=== PATIENT | male | born 1945 | race Caucasian/White ===

== ENCOUNTER → 2021-01-06 | Outpatient (CLI) | payer MEDICARE, OTHER | END | disposition home or self-care (01) | LOC: LAB SHORT 07:48 | DX: D04.39 Carcinoma in situ of skin of other parts of face (principal) | CPT/HCPCS: 88305 ==

== ENCOUNTER → 2021-03-25 | Outpatient (CLI) | payer MEDICARE, OTHER | LOC: LAB SHORT 14:58 → LAB 14:58 | DX: D48.5 Neoplasm of uncertain behavior of skin (principal); C44.319 Basal cell carcinoma of skin of other parts of face | CPT/HCPCS: 88305 ==

== ENCOUNTER → 2021-05-28 | Outpatient (CLI) | payer MEDICARE, OTHER | END | disposition home or self-care (01) | LOC: LAB 14:25 → LAB SHORT 14:25 | DX: C44.319 Basal cell carcinoma of skin of other parts of face (principal) | CPT/HCPCS: 88305 ==

== ENCOUNTER → 2021-06-11 | Outpatient (CLI) | payer MEDICARE, OTHER | END | disposition home or self-care (01) | LOC: LAB SHORT 08:30 → LAB 08:30 | DX: C44.41 Basal cell carcinoma of skin of scalp and neck (principal) | CPT/HCPCS: 88305 ==

== ENCOUNTER → 2021-07-07 | Outpatient (CLI) | payer MEDICARE, OTHER | END | disposition home or self-care (01) | LOC: LAB SHORT 16:38 | DX: C44.310 Basal cell carcinoma of skin of unspecified parts of face (principal) | CPT/HCPCS: 88305 ==

== ENCOUNTER → 2022-07-09 | Outpatient (CLI) | payer MEDICARE, OTHER | END | disposition home or self-care (01) | LOC: PLD 11:38 → LAB 11:38 → LAB SHORT 11:38 | DX: C44.212 Basal cell carcinoma of skin of right ear and external auricular canal (principal) | CPT/HCPCS: 88305 ==

== ENCOUNTER 2022-12-16 01:38 | Emergency (ER) | payer MEDICARE, OTHER ==
[~2022-12-16] VITALS: Ht 182.9 cm; Wt 113.4 kg
[2022-12-16 02:19] LABS: BASOPHILS ABSOLUTE AUTO 0.03 K/mm3 (0.00-0.23); BASOPHILS PERCENT AUTO 0 % (0-2); EOSINOPHILS ABSOLUTE AUTO 0.01 K/mm3 (0.00-0.68); EOSINOPHILS PERCENT AUTO 0 % (0-6); IMMATURE GRAN ABSOLUTE AUTO 0.07 K/mm3 (0.00-0.10); IMMATURE GRAN PERCENT AUTO 1 % (0-1); LYMPHOCYTES ABSOLUTE AUTO 0.72 K/mm3 (0.84-5.20); LYMPHOCYTES PERCENT AUTO 9 % (21-46); MONOCYTES ABSOLUTE AUTO 0.89 K/mm3 (0.16-1.47); MONOCYTES PERCENT AUTO 11 % (4-13); Mean Corpuscular HGB 29.5 pg (26.0-34.0); Mean Corpuscular HGB Conc 35.7 g/dL (31.5-36.5); Mean Corpuscular Volume 83 fL (80-100); NEUTROPHILS ABSOLUTE AUTO 6.56 K/mm3 (1.96-9.15); NEUTROPHILS PERCENT AUTO 79 % (41-73); RDW Coefficient Variation 12.5 % (11.7-14.2); RDW Standard Deviation 38.2 fL (35.1-46.3); Red Blood Cell Count 5.08 M/mm3 (4.30-5.90); White Blood Cell Count 8.28 K/mm3 (4.00-11.30)
[2022-12-16] MEDS ORDERED: POTCHL20ER PO (02:27)
[2022-12-16] MEDS ORDERED: LEVETIRACETAM50014 PO (02:27)
[2022-12-16] MEDS ORDERED: PLAVIX75 MG PO (02:29)
[2022-12-16] MEDS ORDERED: ZOLOFT10013 PO (02:29)
[2022-12-16] MEDS ORDERED: LOSA50 PO (02:29)
[2022-12-16 02:30] LABS: Albumin, Blood 3.2 g/dL (3.4-5.0); Albumin/Globulin Ratio 0.9 (0.8-1.8); Bilirubin, Total 0.7 mg/dL (0.1-1.0); Bun/Creatinine Ratio 24.8 (12.0-20.0); Calcium, Blood 8.5 mg/dL (8.5-10.1); Creatinine, Blood 1.01 mg/dL (0.60-1.20); Globulin, Blood 3.7 g/dL (2.2-4.0); Potassium, Blood 3.6 mmol/L (3.5-5.5); Total Protein, Blood 6.9 g/dL (6.4-8.2)
[2022-12-16] MEDS ORDERED: HYDCHL25 PO (02:30)
[2022-12-16] MEDS ORDERED: Simvastatin80 MG PO (02:30)
[2022-12-16] MEDS ORDERED: LATA.005SO BOTHEYES (02:32)
[2022-12-16 02:38] LABS: Mean Platelet Volume 9.6 fL (9.1-12.4)
[2022-12-16 02:48] LABS: Platelet Count 158 K/mm3 (150-400)
[2022-12-16 04:51] LABS: Source, Urine Voided
[2022-12-16 04:53] LABS: Bilirubin, Urine Neg (Neg); Blood, Urine 1+ (Neg); Glucose Qualitative, Urine Neg (Neg); Ketones, Urine Neg (Neg); Leukocyte Esterase, Urine Neg (Neg); Nitrite, Urine Neg (Neg); Protein, Urine 1+ (Neg); Urobilinogen, Urine 1+ (Normal)
[2022-12-16 05:01] LABS: Appearance, Urine Clear (Clear); Color, Urine Yellow (P-Yellow)
[2022-12-16 05:06] LABS: Bacteria Few /hpf; Red Blood Cells, Urine 0-2 /hpf (0-2); Squamous Epithelial Cells Few /hpf (Few); White Blood Cells, Urine 0-2 /hpf (0-5)
[2022-12-16] MEDS ORDERED: Norco 5-325 Ta1 EACH PO ×2 (05:30→05:49)
== END 2022-12-16 06:00 | disposition home or self-care (01) ==
LOC: ER 01:38
PROVIDERS: Emergency Medicine
DX: R10.9 Unspecified abdominal pain (principal); N28.89 Other specified disorders of kidney and ureter; Z91.030 Bee allergy status; Z86.73 Personal history of transient ischemic attack (TIA), and cerebral infarction without residual deficits
CPT/HCPCS: 74177; 80053; 81001; 83690; 85025; 93005; 93010; J1885; J2405; Q9967

== ENCOUNTER 2024-01-31 07:46 | Emergency (ER) | payer MEDICARE, OTHER ==
[~2024-01-31] VITALS: Ht 177.8 cm; Wt 90.7 kg
[~2024-01-31 07:46] MED LIST: HYDCHL25 PO; LATA.005SO BOTHEYES; LEVETIRACETAM50014 PO; LOSA50 PO; Norco 5-325 Ta1 EACH PO; PLAVIX75 MG PO; POTCHL20ER PO; Simvastatin80 MG PO; ZOLOFT10013 PO
[2024-01-31 10:14] LABS: BASOPHILS ABSOLUTE AUTO 0.03 K/mm3 (0.00-0.23); BASOPHILS PERCENT AUTO 0 % (0-2); EOSINOPHILS ABSOLUTE AUTO 0.07 K/mm3 (0.00-0.68); EOSINOPHILS PERCENT AUTO 1 % (0-6); Hematocrit 41.2 % (37.0-53.0); Hemoglobin 14.2 g/dL (13.5-17.5); IMMATURE GRAN ABSOLUTE AUTO 0.05 K/mm3 (0.00-0.10); IMMATURE GRAN PERCENT AUTO 1 % (0-1); LYMPHOCYTES ABSOLUTE AUTO 1.17 K/mm3 (0.84-5.20); LYMPHOCYTES PERCENT AUTO 12 % (21-46); MONOCYTES ABSOLUTE AUTO 0.67 K/mm3 (0.16-1.47); MONOCYTES PERCENT AUTO 7 % (4-13); Mean Corpuscular HGB 30.1 pg (26.0-34.0); Mean Corpuscular HGB Conc 34.5 g/dL (31.5-36.5); Mean Corpuscular Volume 87 fL (80-100); Mean Platelet Volume 8.8 fL (9.1-12.4); NEUTROPHILS ABSOLUTE AUTO 7.72 K/mm3 (1.96-9.15); NEUTROPHILS PERCENT AUTO 80 % (41-73); Platelet Count 187 K/mm3 (150-400); RDW Coefficient Variation 13.1 % (11.7-14.2); RDW Standard Deviation 41.3 fL (35.1-46.3); Red Blood Cell Count 4.72 M/mm3 (4.30-5.90); White Blood Cell Count 9.71 K/mm3 (4.00-11.30)
[2024-01-31] MEDS ORDERED: Ketorolac Tromethamine 30mg Vial IV ONE (10:30)
[2024-01-31 10:45] LABS: Albumin/Globulin Ratio 0.9 (0.8-1.8); Bilirubin, Total 0.7 mg/dL (0.1-1.0); Bun/Creatinine Ratio 13.6 (12.0-20.0); Calcium, Blood 9.2 mg/dL (8.5-10.1); Creatinine, Blood 0.96 mg/dL (0.60-1.20); Globulin, Blood 3.3 g/dL (2.2-4.0); Potassium, Blood 3.9 mmol/L (3.5-5.5); Total Protein, Blood 6.3 g/dL (6.4-8.2)
[2024-01-31 12:24] LABS: Source, Urine Clean Catch
[2024-01-31 12:34] LABS: Bilirubin, Urine Neg (Neg); Blood, Urine 2+ (Neg); Glucose Qualitative, Urine Neg (Neg); Ketones, Urine Neg (Neg); Leukocyte Esterase, Urine Neg (Neg); Nitrite, Urine Neg (Neg); Protein, Urine Neg (Neg); Urobilinogen, Urine NORM (Normal)
[2024-01-31 12:45] LABS: Appearance, Urine Clear (Clear); Color, Urine Yellow (P-Yellow)
[2024-01-31 12:46] LABS: Bacteria Not Seen /hpf; Squamous Epithelial Cells Rare /hpf (Few); White Blood Cells, Urine Not Seen /hpf (0-5)
[2024-01-31 13:00] VITALS: BP 144/87
== END 2024-01-31 13:30 | disposition home or self-care (01) ==
LOC: ER 07:46
PROVIDERS: Physician Assistant
DX: R10.31 Right lower quadrant pain (principal); N50.82 Scrotal pain; I10 Essential (primary) hypertension; E78.5 Hyperlipidemia, unspecified; Z86.73 Personal history of transient ischemic attack (TIA), and cerebral infarction without residual deficits; Z91.030 Bee allergy status; Z88.8 Allergy status to other drugs, medicaments and biological substances; Z79.02 Long term (current) use of antithrombotics/antiplatelets; Z79.899 Other long term (current) drug therapy
CPT/HCPCS: 51701; 76870; 80053; 81001; 85025; 93971; 96374-59; 99284-25; J1885

== ENCOUNTER → 2024-07-15 | Outpatient (CLI) | payer MEDICARE, OTHER ==
[2024-07-15 16:32] LABS: BASOPHILS ABSOLUTE AUTO 0.08 K/mm3 (0.00-0.23); BASOPHILS PERCENT AUTO 1 % (0-2); EOSINOPHILS ABSOLUTE AUTO 0.24 K/mm3 (0.00-0.68); EOSINOPHILS PERCENT AUTO 2 % (0-6); Hematocrit 39.9 % (37.0-53.0); Hemoglobin 13.8 g/dL (13.5-17.5); IMMATURE GRAN ABSOLUTE AUTO 0.16 K/mm3 (0.00-0.10); IMMATURE GRAN PERCENT AUTO 1 % (0-1); LYMPHOCYTES ABSOLUTE AUTO 1.68 K/mm3 (0.84-5.20); LYMPHOCYTES PERCENT AUTO 11 % (21-46); MONOCYTES ABSOLUTE AUTO 0.86 K/mm3 (0.16-1.47); MONOCYTES PERCENT AUTO 6 % (4-13); Mean Corpuscular HGB 29.2 pg (26.0-34.0); Mean Corpuscular HGB Conc 34.6 g/dL (31.5-36.5); Mean Corpuscular Volume 84 fL (80-100); Mean Platelet Volume 8.8 fL (9.1-12.4); NEUTROPHILS ABSOLUTE AUTO 11.97 K/mm3 (1.96-9.15); NEUTROPHILS PERCENT AUTO 80 % (41-73); Platelet Count 318 K/mm3 (150-400); Red Blood Cell Count 4.73 M/mm3 (4.30-5.90); White Blood Cell Count 14.99 K/mm3 (4.00-11.30)
[2024-07-15 16:51] LABS: Albumin, Blood 2.7 g/dL (3.4-5.0); Albumin/Globulin Ratio 0.6 (0.8-1.8); Bilirubin, Total 0.6 mg/dL (0.1-1.0); Bun/Creatinine Ratio 31.9 (12.0-20.0); Calcium, Blood 9.2 mg/dL (8.5-10.1); Creatinine, Blood 1.13 mg/dL (0.60-1.20); Globulin, Blood 4.5 g/dL (2.2-4.0); Potassium, Blood 4.3 mmol/L (3.5-5.5); Total Protein, Blood 7.2 g/dL (6.4-8.2)
== END ==
LOC: LAB SHORT 16:26 → LAB 16:26
PROVIDERS: Nurse Practitioner Family
DX: G45.9 Transient cerebral ischemic attack, unspecified (principal); N20.0 Calculus of kidney
CPT/HCPCS: 80053; 85025

== ENCOUNTER 2025-05-22 12:57 | Observation (INO) | payer OTHER, MEDICARE ==
[~2025-05-22] VITALS: Ht 177.8 cm; Wt 105.8 kg
[~2025-05-22 12:57] MED LIST changes: -LOSA50 PO; +LOSARTAN POTAS100 MG PO; +Simvastatin40 MG PO; -Simvastatin80 MG PO
[2025-05-22] MEDS ORDERED: HYDROmorphone HCl/Pf 1MG SYR IV ONE ×2 (13:25→14:45)
[2025-05-22] MEDS ORDERED: Ondansetron HCl 2 MG / ML 2ML Vial IV ONE (13:25)
[2025-05-22] MEDS ORDERED: IBUP400 PO (14:04)
[2025-05-22] MEDS ORDERED: TRAM50 PO (14:17)
[2025-05-22 15:28] LABS: BASOPHILS ABSOLUTE AUTO 0.04 K/mm3 (0.00-0.23); BASOPHILS PERCENT AUTO 0 % (0-2); EOSINOPHILS ABSOLUTE AUTO 0.03 K/mm3 (0.00-0.68); EOSINOPHILS PERCENT AUTO 0 % (0-6); Hematocrit 39.9 % (37.0-53.0); Hemoglobin 13.2 g/dL (13.5-17.5); IMMATURE GRAN ABSOLUTE AUTO 0.08 K/mm3 (0.00-0.10); IMMATURE GRAN PERCENT AUTO 1 % (0-1); LYMPHOCYTES ABSOLUTE AUTO 0.80 K/mm3 (0.84-5.20); LYMPHOCYTES PERCENT AUTO 6 % (21-46); MONOCYTES ABSOLUTE AUTO 0.63 K/mm3 (0.16-1.47); MONOCYTES PERCENT AUTO 5 % (4-13); Mean Corpuscular HGB Conc 33.1 g/dL (31.5-36.5); Mean Corpuscular Volume 89 fL (80-100); NEUTROPHILS ABSOLUTE AUTO 12.40 K/mm3 (1.96-9.15); NEUTROPHILS PERCENT AUTO 89 % (41-73); NRBC ABSOLUTE 0.00 K/mm3 (0.00-0.02); NRBC Auto 0.0 /100 WBC (0.0-0.2); Platelet Count 169 K/mm3 (150-400); RDW Coefficient Variation 13.2 % (11.7-14.2); RDW Standard Deviation 43.2 fL (35.1-46.3)
--- NOTE | 2025-05-22 16:00 | NUR ---
MET WITH PATIENT AND FAMILY IN ER TO DISCUSS GOALS. PATIENT IS ON HOSPICE WITH [facility], BUT FELL AND HAS AN ARM FX AND HIP FX. PATIENT IS GOING TO BE ADMITED FOR PAIN CONTROL AND PENDING HOSPITAL BED FROM HOSPICE TO BE DELIVERED.
[2025-05-22 16:03] LABS: Alanine Aminotransfer (ALT/SGP 22.0 U/L (12-78); Albumin, Blood 3.2 g/dL (3.4-5.0); Albumin/Globulin Ratio 0.9 (0.8-1.8); Anion Gap 7.0 mmol/L (3-11); Aspartate Aminotrans (AST/SGOT 21.0 U/L (12-37); Bilirubin, Total 0.5 mg/dL (0.1-1.0); Blood Urea Nitrogen 22.0 mg/dL (8-24); CO2, Blood 27.0 mmol/L (21-32); Calcium, Blood 8.9 mg/dL (8.5-10.1); Chloride, Blood 105.0 mmol/L (98-108); Creatinine, Blood 0.88 mg/dL (0.60-1.20); Globulin, Blood 3.6 g/dL (2.2-4.0); Glucose, Blood 121.0 mg/dL (70-99); Potassium, Blood 4.0 mmol/L (3.5-5.5); Sodium, Blood 135.0 mmol/L (136-145); Total Protein, Blood 6.8 g/dL (6.4-8.2)
[2025-05-22] MEDS ORDERED: FentaNYL Citrate 50 MCG/ML 2 ML Injection IV PRN (16:20)
--- NOTE | 2025-05-22 18:40 | NUR ---
PALLIATIVE CARE NOTE: [facility] FOUND ON [facility] REGISTRY DNR, COMFORT MEASURES. SENT COPY TO MEDICAL RECORDS AND GAVE COPY TO NET SQL DEVELOPER PT HAS NOT BEEN ADMITTED AT THIS TIME.
[2025-05-22 19:06] VITALS: BP 145/91
--- NOTE | 2025-05-22 20:00 | NUR ---
ARRIVAL TO SURGICAL UNIT ROOM 214 AT 1845. PT TRANSFERED TO BED VIA SLIDER SHEET. PT VERBALIZED PAIN WITH TRANSFER. ORIENTED TO ROOM AND CALL LIGHT. 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 CALL LIGHT IN REACH, BED ALARM SET FOR SAFETY.
[2025-05-23 04:13] VITALS: BP 153/78
--- NOTE | 2025-05-23 06:16 | NUR ---
SHIFT SUMMARY NOC. PT ADMIT FOR PAIN MANAGEMENT R/T L HUMEROUS FX AND L FEMUR FX. PT A/O X3. PT VOIDING VIA PUREWICK. PT MEDICATED FOR PAIN WITH IV FENT. PT USES CALL LIGHT, AND CALLS APPROPRIATELY. BED ALARM SET FOR SAFETY.
[2025-05-23 07:12] VITALS: BP 149/73
[2025-05-23] MEDS ORDERED: Enoxaparin 40 MG/0.4 ML SYR SC SCH (09:00)
--- NOTE | 2025-05-23 09:19 | NUR ---
PT VERBALLY SAYING "NO" AND SHAKING FINGER NO TO TAKING MORNING MEDICATIONS. OFFERED SIPS OF WATER, TAKING PILLS WITH APPLESAUCE, AND ELEVATING HEAD OF BED. PT CONTINUES TO SAY "NO". PT ALSO DECLINED BREAKFAST. PT DID AGREE TO RECEIVING LOVENOX INJECTION. OFFERED ICE AND REPOSITIONING, BUT DECLINED. MEDICATED FOR PAIN.
[2025-05-23] MEDS ORDERED: Acetaminophen 160MG / 5ML 10.15 UDC PO PRN (10:25)
[2025-05-23] MEDS ORDERED: Atropine Sulfate 1% Opth Soln 2ML BTL SL PRN (10:25)
[2025-05-23] MEDS ORDERED: Morphine Sulfate 20 MG/1ML 1 ML Oral Syringe SL PRN (10:25)
--- NOTE | 2025-05-23 12:06 | NUR ---
AT BEDSIDE. PT SMILING. PT DENIES BEING IN PAIN. WATER REFILLED. CALL LIGHT IN REACH.
--- NOTE | 2025-05-23 12:07 | NUR ---
DISCUSSED CASE WITH [facility] AND PROVIDER. COMFORT CARE ORDERS PLACED. PATIENT IS EXPERIENCING SOME PAIN THIS SHIFT.
[2025-05-23 15:20] VITALS: BP 172/77
[2025-05-23 15:21] VITALS: BP 172/77
[2025-05-23] MEDS ORDERED: HYDMOR2 PO (15:55)
--- NOTE | 2025-05-23 16:21 | NUR ---
DISCHARGE PT DISCHARGING HOME ON HOSPICE. FAMILY AWARE OF TREATMENT PLAN. FAMILY REPORTS PROPER MEDICAL EQUIPMENT HAS BEEN DELIVERED. FAMILY FILLED HYDROMORPHINE RX. IV DC'D. PT TO GO HOME WITH [facility] FOR COMFORT. TRANSPORT TO ARRIVE AT APPROX 1700 PER EDGER TECHNICIAN.
[2025-05-23] MEDS ORDERED: Latanoprost 0.005% Opth Soln 2.5 ML BOTHEYES SCH (21:00)
== END 2025-05-23 17:45 | disposition hospice, home (50) ==
LOC: ER 12:57 → SURS 12:58
PROVIDERS: Emergency Medicine; ADMIT Internal Medicine
DX: S42.292A Other displaced fracture of upper end of left humerus, initial encounter for closed fracture (principal); S72.002A Fracture of unspecified part of neck of left femur, initial encounter for closed fracture; W18.30XA Fall on same level, unspecified, initial encounter; Z51.5 Encounter for palliative care; F03.90 Unspecified dementia, unspecified severity, without behavioral disturbance, psychotic disturbance, mood disturbance, and anxiety; G40.909 Epilepsy, unspecified, not intractable, without status epilepticus; C64.9 Malignant neoplasm of unspecified kidney, except renal pelvis; I10 Essential (primary) hypertension; F32.A Depression, unspecified; E78.5 Hyperlipidemia, unspecified; Z66 Do not resuscitate; Z79.02 Long term (current) use of antithrombotics/antiplatelets; Z79.899 Other long term (current) drug therapy; Z91.030 Bee allergy status; Z86.73 Personal history of transient ischemic attack (TIA), and cerebral infarction without residual deficits
CPT/HCPCS: 29105; 73030; 73060; 73502; 80053; 85025; 93005; 93010; 96372; 96374-59; 96375-59; 96376; 96376-59; 99285-25; A9270; G0378; J1171; J1650; J2405; J3010